=== PATIENT | female | born 1950 ===

== ENCOUNTER 2018-11-19 11:54 | Day surgery (SDC) | payer MEDICARE, OTHER ==
[~2018-11-19 11:54] MED LIST: CEFAZOLIN 2 Gram 2 GM/50 ML BAG IVPB ONE; CELECOXIB 100 MG CAPSULE PO ONE; FAMOTIDINE 20MG TABLET PO ONE; MECLIZINE 25 MG TABLET PO ONE; METOCLOPRAMIDE 10 MG TABLET PO ONE; VANCOMYCIN 1GM/200ML PREMIX 1 GM/200 ML PIGGYBACK IVPB ONE
[2018-11-19] MEDS ORDERED: PROPOFOL 10 MG/ML VIAL IV ONE (11:55)
[2018-11-19] MEDS ORDERED: LIDOCAINE 2% MDV (20MG/ML) 20ML VIAL IV ONE (11:55)
[2018-11-19] MEDS ORDERED: MIDAZOLAM HCL 2MG/2ML VIAL IV ONE (11:55)
[2018-11-19] MEDS ORDERED: ROPIVACAINE HCL (NAROPIN) /PF 5MG/ML 20ML VIAL IV ONE (11:55)
[2018-11-19] MEDS ORDERED: DEXAMETHASONE 4 MG/ML 1ML VIAL IVP ONE (11:55)
[2018-11-19] MEDS ORDERED: RINGERS SOLUTION,LACTATED 1,000 ML IV ONE (12:25)
[2018-11-19 12:44] LABS: ABO GROUP A; RH TYPE POSITIVE
[2018-11-19 13:35] LABS: ANTIBODY SCREEN NEGATIVE (NEGATIVE)
[2018-11-19] MEDS ORDERED: TRANEXAMIC ACID 1,000 MG/10 ML ML IU ONE (13:50)
[2018-11-19] MEDS ORDERED: BUPIVACAINE 0.5% W/EPI MPF 30 ML VIAL SQ ONE (13:50)
[2018-11-19] MEDS ORDERED: TRANEXAMIC ACID 1,000 MG/10 ML ML IV ONE (13:51)
[2018-11-19] MEDS ORDERED: HYDROCODONE/APAP 10/325 TABLET PO PRN (14:41)
[2018-11-19] MEDS ORDERED: MAGNESIUM HYDROXIDE 30 ML UDC PO PRN (14:41)
[2018-11-19] MEDS ORDERED: HYDROMORPHONE HCL 2 MG/ML VIAL IM PRN (14:41)
[2018-11-19] MEDS ORDERED: BISACODYL 10 MG SUPP RC PRN (14:41)
[2018-11-19] MEDS ORDERED: ACETAMINOPHEN W/ CODEINE 300MG/60MG TABLET PO PRN ×2 (14:41)
[2018-11-19] MEDS ORDERED: ACETAMINOPHEN 325 MG TAB PO PRN (14:41)
[2018-11-19] MEDS ORDERED: KETOROLAC 30 MG/ML VIAL IVP PRN (14:41)
[2018-11-19] MEDS ORDERED: DIPHENHYDRAMINE HCL 25 MG CAPSULE PO PRN (14:41)
[2018-11-19] MEDS ORDERED: ONDANSETRON HCL IV 4 MG/2 ML VIAL IVP PRN (14:41)
[2018-11-19] MEDS ORDERED: AL HYDROX/MAG HYDROX 30ML UD PO PRN (14:41)
[2018-11-19] MEDS ORDERED: ZOLPIDEM TARTRATE 5 MG TABLET PO PRN (14:41)
[2018-11-19] MEDS ORDERED: TRAMADOL HCL 50 MG TABLET PO PRN (14:41)
[2018-11-19] MEDS ORDERED: NALOXONE 0.4 MG/1 ML VIAL IVP PRN (14:41)
[2018-11-19] MEDS: POTASSIUM CHLORIDE/D5-0.9%NACL 20 MEQ/1,000 ML BAG IV SCH (15:58)
[2018-11-19] MEDS ORDERED: FLU VAC QS 2019-20 (INPT, 6MO+) 60MCG/0.5ML IM ONE (16:20)
--- NOTE | 2018-11-19 17:40 | Rehab Evaluation ---
Patient Information - Patient Information Diagnosis: DJD R knee Ordered Treatment: PT Evaluate and Treat Status: Initial Evaluation Surgery: Yes (R TKA) Date of Surgery: 11/19/18 Past Medical/Surgical Hx: PAST MEDICAL/SURGICAL HISTORY Past Surgical History LIPOMA RIGHT THIGH RIGHT CAT LEFT RETINA DETACHMENT C SCOPE PMH - Respiratory Hx Respiratory Disorders No PMH - Cardiovascular Hx Cardiovascular Disorders No Exercise Tolerance Fair Comment: WAS VERY ACTIVE BEFORE KNEE STARTED BOTHERING HER PMH - Neuro Hx Neurological Disorders No PMH - GI Hx Gastrointestinal Disorders No PMH - Hx Genitourinary Disorders No Hx Age of Menopause 49 PMH - Endocrine Hx Endocrine Disorders No PMH - Musculoskeletal Hx Musculoskeletal Disorders Yes Hx Arthritis Yes: RA AND OA PMH - Psych Hx Psychiatric Problems No PMH - Hematology/Oncology Hx Hematology/Oncology Yes Disorders Hx Anemia Yes Premorbid Status: Detail (The patient was independent with all mobility prior to surgery.) Social History: Detail (The patient lives with significant other in a 3 story house with a walk in basement with two stairs and a landing then a series of 4 to 5 stairs and landings between floors. One handrail is present on each flight of stairs. The patient's bedroom is on the 3rd floor but she may stay on the second floor on a sofa after surgery. The main bathroom is on the 3rd floor with a walk in shower with a seat and a standard height toilet. No grab bars are present in the bathroom. The patient has a front wheeled walker .) Precautions: [place], Fall, Other (WBAT on the R LE) - Time With Patient Total Time Spent With Patient (Min): 30 Treatment Procedures: Detail (Initial Evaluation, low complexity) Subjective Information - Subjective Information Per Patient (The patient had complaints of lightheadness and nausea. The patient had minimal complaints of pain.) Objective Data - Mental Status Patient Orientation: Oriented x3 - Visual Perception Appears within normal limits for therapeutic activities - ROM Not within normal limits (The patient's R knee AROM is limited s/p surgery. All other AROM was WNL.) - Strength/Tone Not within normal limits (The patient's LE strength was not tested s/p surgery however was functional.) - Bed Mobility Independent (The patient was independent with supine to and from sit and scooting up in bed.) - Transfers Independent (The patient is independent with sit to and from stand transfer.) - Balance Balance Sitting: Good Balance Standing: Good - Sensation Intact - Gait Detail (The patient ambulated with front wheeled walker WBAT on the R LE with supervision for safety a distance of 65 feet x 1.) Therapy Assessment - Therapy Assessment Detail (The patient was independent with bed mobility and transfers and requires supervision for safety with ambulation. The patient will progress well with mobility.) Problem List - Problem List Physical Therapy Problem List: Detail (1) Decreased R knee AROM and strength as to be expected following surgery.) Goals - Goals Physical Therapy Goals: 1) The patient will be independent with TKA HEP. 2) The patient will ambulate on stairs with supervision for safety using proper technique. Prognosis - Prognosis Good Plan - Plan Physical Therapy Plan: PT 1-2 sessions for gait training on stairs and instruction in HEP.
[2018-11-19] MEDS ORDERED: PNEUM 13-VAL/PF 0.5 ML IM ONE (18:12)
[2018-11-19] MEDS: SULFASALAZINE 500MG PO SCH (21:36)
[2018-11-19] MEDS: CEFAZOLIN 2 Gram 2 GM/50 ML BAG IVPB SCH (21:36)
[2018-11-19] MEDS: HYDROCODONE/APAP 10/325 TABLET PO PRN ×2 (21:38→23:07)
[2018-11-19] MEDS: DOCUSATE SODIUM 100 MG CAPSULE PO SCH (21:38)
[2018-11-20] MEDS: POTASSIUM CHLORIDE/D5-0.9%NACL 20 MEQ/1,000 ML BAG IV SCH (00:08)
[2018-11-20] MEDS: HYDROCODONE/APAP 10/325 TABLET PO PRN ×2 (06:08→11:45)
[2018-11-20] MEDS: CEFAZOLIN 2 Gram 2 GM/50 ML BAG IVPB SCH ×2 (06:08→12:47)
[2018-11-20 06:53] LABS: HEMATOCRIT 29.8 % (35.0-47.0)
[2018-11-20 07:00] LABS: BLOOD UREA NITROGEN 8 mg/dL (8-23); CREATININE 0.5 mg/dL (0.5-0.9); EST GLOMERULAR FILTRATION RATE > 60 mL/min; GLUCOSE,RANDOM 118 mg/dL (74-109)
--- NOTE | 2018-11-20 07:21 | Operative Note ---
DATE OF SURGERY: 11/19/2018 PREOPERATIVE DIAGNOSIS: Rheumatoid arthritis of the right knee. POSTOPERATIVE DIAGNOSIS: Rheumatoid arthritis of the right knee. OPERATION: Cemented right total knee arthroplasty using Figueroa [employer]hew Nancie II components with a size 4 Oxinium femur, a size 3 stemmed tibia baseplate, a 9 mm lipped highly crosslinked tibial insert, and a 32 mm all-plastic patella. STAFF SURGEON: Ajay Forrester MD ANESTHESIA: Spinal. PREPARATION: Chloraprep. INDIVIDUAL CONSIDERATIONS: None. PROCEDURE: The patient was taken to the operating room, placed supine on the operating room table. She had a successful induction of a spinal anesthetic. The right lower extremity was prepped and draped in the usual fashion. The limb was elevated and tourniquet was inflated to 250 mmHg. The patient had a midline approach to the knee. Sharp dissection carried down through skin and subcutaneous tissue. Small veins were coagulated with a Bovie. A medial arthrotomy was performed. The patella was everted and the knee was flexed. The patient had exposed bone throughout, especially in the medial compartment. Fat pad was resected, provisional anterior meniscectomies were performed, a bit of synovitis was removed from the pouch, and the capsule was released from the medial proximal tibia. The initial femoral balloon pilot hole was then made freehand. The intramedullary femoral cutting jig was placed. It was cut in 7.0 degrees of valgus and adjusted for rotation and secured with pins for a 10 mm resection. The initial transverse cut was then made. The skin guide was placed through the anterior and posterior balloon pilot holes. It was found that a size 4 would be appropriate. The anterior and posterior cuts followed by chamfer cuts were made. Osteophytes removed, and a size 4 trial was placed and found to fit well. The tibia was brought forward, and the remainder of the meniscal remnants removed with a Bovie. The extraarticular tibial cutting jig was placed. It was cut in neutral with a 3-degree AP slope. Care was taken to adjust for rotation and flexion using the extraarticular guide and bony landmarks. It was set for a 9 mm resection keyed off the high lateral side and secured with pins. When cutting the tibia, care was taken to preserve the PCL insertion on the tibia. After making a cut and removing small osteophytes, I could fit a size 3. It was adjusted for rotation and secured with pins. With a 9 mm trial and femoral trial, there was excellent motion and stability. Ligamentous balance, rotation, and alignment were thought to be normal. Femoral balloon pilot holes were then impacted and tri-flange tibial stamp was impacted, and these trial components were removed. The patient had about a 23-24 mm patella and roughly 9 mm of bone was removed freehand. I could easily fit a 32 patella, and the 3 balloon pilot holes were drilled. The tourniquet was let down briefly to get bleeders posteriorly and then placed back up again. The knee was then thoroughly irrigated out with pulsatile Betadine and saline to remove any visual or palpable debris. Bony surfaces were then dried. A size 3 stemmed tibia baseplate was then cemented into place followed by impaction of the 9 mm lipped tibial insert followed by cementing in the size 4 Oxinium femur followed by cementing in the 32 mm patella. The implant surfaces were compressed, excess cement was removed. After the cement had set, there was excellent motion and stability. Ligamentous balance, rotation, alignment, and patellofemoral tracking were normal. Again thorough irrigation. Tourniquet was again let down. Hemostasis was obtained with a Bovie. The periosteum, skin, and subcu were infiltrated with 30 mL of 0.5% Marcaine with epinephrine. The capsule was then closed with a running #2 quill, subcu was closed in layers with running 0 quill, skin was closed with sangeeta. Then 1 g of tranexamic acid was mixed with 30 mL of saline and injected into the knee through a sterile 18-gauge needle, and a sterile bulky compressive MYRIAM-type dressing was applied. The patient tolerated the procedure well. Needle and sponge counts were correct. Estimated blood loss was minimal, and she was taken back to recovery in good condition. There were no complications. [facility]ERS[facility]
[2018-11-20] MEDS: DOCUSATE SODIUM 100 MG CAPSULE PO SCH (09:42)
[2018-11-20] MEDS: SULFASALAZINE 500MG PO SCH (09:44)
--- NOTE | 2018-11-20 09:45 | Rehab Evaluation ---
Patient Information - Patient Information Diagnosis: DJD R knee Ordered Treatment: OT Evaluate and Treat Status: Initial Evaluation Surgery: Yes (R TKA) Date of Surgery: 11/19/18 Past Medical/Surgical Hx: PAST MEDICAL/SURGICAL HISTORY Past Surgical History LIPOMA RIGHT THIGH RIGHT CAT LEFT RETINA DETACHMENT C SCOPE PMH - Respiratory Hx Respiratory Disorders No PMH - Cardiovascular Hx Cardiovascular Disorders No Exercise Tolerance Fair Comment: WAS VERY ACTIVE BEFORE KNEE STARTED BOTHERING HER PMH - Neuro Hx Neurological Disorders No PMH - GI Hx Gastrointestinal Disorders No PMH - Hx Genitourinary Disorders No Hx Age of Menopause 49 PMH - Endocrine Hx Endocrine Disorders No PMH - Musculoskeletal Hx Musculoskeletal Disorders Yes Hx Arthritis Yes: RA AND OA PMH - Psych Hx Psychiatric Problems No PMH - Hematology/Oncology Hx Hematology/Oncology Yes Disorders Hx Anemia Yes Premorbid Status: Detail (The patient was independent with all mobility, laundry and some home mgmt tasks prior to surgery.) Social History: Detail (The patient lives with significant other in a 3 story house with a walk in basement with two stairs and a landing then a series of 4 to 5 stairs and landings between floors. One handrail is present on each flight of stairs. The patient's bedroom is on the 3rd floor but she may stay on the second floor on a sofa after surgery. The main bathroom is on the 3rd floor with a walk in shower with a seat and a standard height toilet. No grab bars are present in the bathroom. The patient has a front wheeled walker and a toilet riser.) Precautions: [place], Fall, Other (WBAT on the R LE) - Time With Patient Total Time Spent With Patient (Min): 30 Treatment Procedures: Detail (OT eval low complexity) Subjective Information - Subjective Information Per Patient Objective Data - Pain Pain Present: Yes (08/21) - Mental Status Patient Orientation: Oriented x3 - Visual Perception Appears within normal limits for therapeutic activities - ROM Within normal limits (Diego UE AROM WNL) - Strength/Tone Within normal limits (Diego UE strength WNL) - Coordination Appears within normal limits for therapeutic activities - Bed Mobility Independent (Ind with supine to sit) - Transfers Independent (Ind with sit to stand from EOB) - Balance Balance Sitting: Good Balance Standing: Good - Sensation Intact - Gait Detail (Pt ambulating in room with 2 wheeled walker and supervision) - ADL's/IADL's Detail (Pt educated and able to demonstrate learning of modified LE dressing techniques including doffing briefs and slipper socks and donning underwear, rocael sock (with assist), skirt and tennis shoes. Pt educated re: kitchen and bathroom safety and modifications, she was able to verbalize understanding.) Therapy Assessment - Therapy Assessment Detail (Pt is Ind with modified LE dressing techniques.) Problem List - Problem List Physical Therapy Problem List: Detail (1) Decreased R knee AROM and strength as to be expected following surgery.) Occupational Therapy Problem List: Detail (No current IP OT problems identified.) Goals - Goals Physical Therapy Goals: 1) The patient will be independent with TKA HEP. 2) The patient will ambulate on stairs with supervision for safety using proper technique. Occupational Therapy Goals: No current IP OT goals identified. Prognosis - Prognosis Good Plan - Plan Physical Therapy Plan: PT 1-2 sessions for gait training on stairs and instruction in HEP. Occupational Therapy Plan: No further IP OT recommended. Thank you for this referral.
[2018-11-20] MEDS ORDERED: FLU VAC QS 2019-20 (INPT, 6MO+) 60MCG/0.5ML IM ONE (10:00)
[2018-11-20] MEDS ORDERED: FOLIC ACID 1MG PO SCH (10:00)
[2018-11-20] MEDS ORDERED: FERROUS SULFATE 325 MG TAB PO SCH (10:00)
[2018-11-20] MEDS ORDERED: RIVAROXABAN 10 MG TABLET PO SCH (10:00)
--- NOTE | 2018-11-20 10:46 | Physical Therapy Tx Note ---
Physical Therapy Tx Note - Treatment Note Tolerated: Good Total Time Spent With Patient: 25 Physical Therapy Tx Note: Detail (Patient stated that she had 8/10 pain her R knee this morning. She was able to ambulate 120 feet over smooth surfaces with a front-wheeled walker independently. She completed stair training on 13 steps with supervision using correct technique. Patient was instructed in HEP, and demonstrated good technique of exercises after receiving verbal and tactile cuing. Patient was left in bed with her call light and bedside table within reach. The nursing staff was notified of her position.) Physical Therapy Problem List: Detail (1) Decreased R knee AROM and strength as to be expected following surgery.) Physical Therapy Goals: 1) The patient will be independent with TKA HEP GOAL MET. 2) The patient will ambulate on stairs with supervision for safety using proper technique. GOAL MET Physical Therapy Plan: Patient has met all inpatient goals at this time. She will continue with home PT upon discharge.
== END 2018-11-20 14:20 | disposition home health service (06) ==
LOC: SUR 11:54 → MEDSURG 15:38 → SUR 11-20 14:20
PROVIDERS: ATTEND Orthopaedic Surgery
DX: M06.861 Other specified rheumatoid arthritis, right knee (principal)
CPT/HCPCS: 27447; 01402; 64447; 85018; 85014; 80048; 86900; 86901; 86850; 90686; 76942; C1776; G0008; J1885; J2405; J1170; J0690 ×2; J3490 ×2; J2795; J3370; J3480; J7120